=== PATIENT | female | born 1985 | race Caucasian/White ===

== ENCOUNTER 2019-10-15 18:00 | Emergency (ER) | payer MEDICAID ==
--- NOTE | 2019-10-15 20:28 | EDM.PDOC ---
ED HPI GENERAL MEDICAL PROBLEM - General Chief Complaint: [employer] Problem Stated Complaint: VAG BLEEDING Time Seen by Provider: 10/15/19 19:50 Source of Information: Reports: Patient History Limitations: Reports: No Limitations - History of Present Illness INITIAL COMMENTS - FREE TEXT/NARRATIVE: 34-year-old female who is very early in her is having some vaginal bleeding but no cramping. No other complaints, she just is wondering if she has a viable . She is not bleeding heavy. No fevers or chills, denies nausea or vomiting. She has had 2 previous miscarriages. Onset: Sudden Duration: Hour(s): (Started about 12 hours ago) Associated Symptoms: Reports: No Other Symptoms denies pain Pain Score (Numeric/FACES): 0 - Related Data Allergies Allergy/AdvReac Type Severity Reaction Status Date / Time No Known Allergies Allergy Verified 10/15/19 19:08 Home Meds: Home Meds Prenat 115/Iron Fum/Folic/Dss [ 19 Tablet] 1 tab PO DAILY 10/15/19 [History] Past Medical History HEENT History: Reports: Other (See Below) Other HEENT History: glasses Respiratory History: Reports: Bronchitis, Recurrent [employer] History: Reports: , Spontaneous , Other (See Below) Other [employer] History: x3 miscarriages Psychiatric History: Reports: Anxiety, Depression Immunologic History: Reports: Other (See Below) Other Immunologic History: HPV - Infectious Disease History Infectious Disease History: Reports: Chicken Pox - Past Surgical History HEENT Surgical History: Reports: Oral Surgery Female Surgical History: Reports: Section Social & Family History - Tobacco Use Smoking Status *Q: Current Every Day Smoker Years of Tobacco use: 12 Packs/Tins Daily: 0.5 - Caffeine Use Caffeine Use: Reports: Coffee, Soda - Recreational Drug Use Recreational Drug Use: No ED ROS GENERAL - Review of Systems Review Of Systems: See Below Constitutional: Denies: Fever, Chills Respiratory: Reports: No Symptoms Cardiovascular: Reports: No Symptoms GI/Abdominal: Reports: No Symptoms Skin: Reports: No Symptoms Neurological: Denies: Headache ED EXAM - Physical Exam Exam: See Below Exam Limited By: No Limitations General Appearance: Alert, No Apparent Distress Respiratory/Chest: No Respiratory Distress GI/Abdominal Exam: Non-Tender Neurological: Alert, Oriented Psychiatric: Normal Affect, Normal Mood Skin Exam: Warm, Dry Course - Vital Signs Last Recorded V/S: Last Vital Signs Temp 98.2 F 10/15/19 19:09 Pulse 76 10/15/19 19:09 Resp 16 10/15/19 19:09 BP 114/65 10/15/19 19:09 Pulse Ox 98 10/15/19 19:09 - Orders/Labs/Meds Labs: Laboratory Tests 10/15/19 10/15/19 Range/Units 19:59 19:59 WBC 10.6 (4.5-11.0) K/uL RBC 4.05 (3.30-5.50) M/uL Hgb 13.1 (12.0-15.0) g/dL Hct 39.0 (36.0-48.0) % MCV 96 (80-98) fL MCH 32 H (27-31) pg MCHC 34 (32-36) % Plt Count 291 (150-400) K/uL Neut % (Auto) 54 (36-66) % Lymph % (Auto) 31 (24-44) % [place] % (Auto) 8 H (2-6) % Eos % (Auto) 7 H (2-4) % Baso % (Auto) 1 (0-1) % HCG, Quant 257 H (0-6) mIU/mL - Re-Assessments/Exams Free Text/Narrative Re-Assessment/Exam: 10/15/19 20:27 A baseline CBC and quantitative hCG were drawn 10/15/19 20:45 Hemoglobin is normal, hCG is only 257. I recommended her rechecking in 3 to 5 days. Departure - Departure Time of Disposition: 21:26 Disposition: Home, Self-Care 01 Clinical Impression: Threatened in first trimester - Discharge Information Instructions: Vaginal Bleeding During , First Trimester Referrals: PCP,None [Primary Care Provider] - Forms: ED Department Discharge Care Plan Goals: Rest, return if significant bleeding or pain, otherwise recheck in 3 to 5 days. Continue vitamins. Sepsis Event Note (ED) - Evaluation Sepsis Screening Result: No Definite Risk - Focused Exam Vital Signs: Vital Signs Temp Pulse Resp BP Pulse Ox 10/15/19 19:09 98.2 F 76 16 114/65 98 10/15/19 18:50 98.2 F 76 16 114/65 98
== END 2019-10-15 21:00 | disposition home or self-care (01) ==
LOC: JP.ED 18:00
DX: O20.0 Threatened abortion (principal); F17.210 Nicotine dependence, cigarettes, uncomplicated
CPT/HCPCS: 36415; 84702; 85025; 99284